=== PATIENT | female | born 1995 | race Caucasian/White ===

== ENCOUNTER → 2021-08-11 | Outpatient (REF) | LOC: M PLAIMG 12:33 | PROVIDERS: ATTEND Internal Medicine | DX: M25.552 Pain in left hip (principal); M25.512 Pain in left shoulder ==

== ENCOUNTER → 2022-10-24 | Day surgery (SDC) | payer OTHER ==
[~2022-10-24] VITALS: Ht 160 cm; Wt 48.2 kg
[~2022-10-24] MED LIST: ACETAMINOPHEN 1000MG 100ML IV BAG As Ordered ONE; ALBU6.7H6 INH; CLINDAMYCIN 900MG/6ML VIAL As Ordered ONE; CLON-412 PO; CONC36TA4 PO; HYDR-3363 PO; HYDROMORPHONE HCL 0.5 MG/ 0.5 ML SYRINGE IV PRN; LIDOCAINE 2% 100MG/5ML SDV (FOR ANES.) As Ordered ONE; LIDOCAINE W/EPINEPHRINE 1% 20ML VIAL As Ordered ONE; LORA-674 PO; LR 1,000 ML IV SCH; METOCLOPRAMIDE INJ 10MG/2ML VIAL IV PRN; MIDAZOLAM INJ 2MG/2ML VIAL As Ordered ONE; MIRT-10 PO; ONDANSETRON 4MG 2ML VIAL As Ordered ONE; ONDANSETRON 4MG 2ML VIAL IV PRN; ROCURONIUM BROMIDE 50MG/5ML VIAL As Ordered ONE; SUGAMMADEX SODIUM 500 MG/5 ML VIAL (BRIDION) As Ordered ONE; fentaNYL 100 MCG/2 ML INJECTION As Ordered ONE; fentaNYL 100 MCG/2 ML INJECTION IV PRN; oxyCODONE 5MG TAB PO PRN
[2022-10-24 15:30] VITALS: BP 116/80; TEMP 97.6; O2SAT 99
== END | disposition home or self-care (01) ==
LOC: M SDC 10:56
PROVIDERS: ATTEND Otolaryngology
DX: Q89.2 Congenital malformations of other endocrine glands (principal); J45.909 Unspecified asthma, uncomplicated; D64.9 Anemia, unspecified; M79.7 Fibromyalgia; F90.9 Attention-deficit hyperactivity disorder, unspecified type; F43.10 Post-traumatic stress disorder, unspecified; F41.9 Anxiety disorder, unspecified; F32.A Depression, unspecified; G43.909 Migraine, unspecified, not intractable, without status migrainosus; F17.200 Nicotine dependence, unspecified, uncomplicated; Z79.51 Long term (current) use of inhaled steroids; Z79.899 Other long term (current) drug therapy; Z88.8 Allergy status to other drugs, medicaments and biological substances
CPT/HCPCS: 60280; 81025; 88305; 88311; J0131; J0736; J1100; J2250; J2405; J3010